=== PATIENT | male | born 1930 | race Caucasian/White ===

== ENCOUNTER → 2017-06-27 | Outpatient (CLI) | payer MEDICARE ==
[~2017-06-27] MED LIST: AMOCLA875 PO; ASPI325EC; ASPI81CH PO; CLOP75 PO; HYDCHL25 PO
== END ==
LOC: LAB SHORT 15:49 → PLD 15:49
DX: D48.5 Neoplasm of uncertain behavior of skin (principal)
CPT/HCPCS: 88305

== ENCOUNTER → 2017-10-31 | Outpatient (CLI) | payer MEDICARE ==
[~2017-10-31] MED LIST changes: -ASPI81CH PO; -CLOP75 PO; -HYDCHL25 PO
== END | disposition home or self-care (01) ==
LOC: PLD 09:14 → LAB SHORT 09:14
DX: C44.42 Squamous cell carcinoma of skin of scalp and neck (principal); C44.729 Squamous cell carcinoma of skin of left lower limb, including hip
CPT/HCPCS: 88305

== ENCOUNTER 2017-12-24 08:58 | Emergency (ER) | payer OTHER ==
[~2017-12-24] VITALS: Ht 170.2 cm; Wt 65.3 kg
[2017-12-24] MEDS ORDERED: CLOP75 PO (10:25)
[2017-12-24] MEDS ORDERED: HYDCHL25 PO (10:25)
[2017-12-24] MEDS ORDERED: ASPI81CH PO (10:26)
== END 2017-12-24 12:36 | disposition home or self-care (01) ==
LOC: ER 08:58
DX: S89.91XA Unspecified injury of right lower leg, initial encounter (principal); I10 Essential (primary) hypertension; Z87.891 Personal history of nicotine dependence; Z88.2 Allergy status to sulfonamides; Z79.899 Other long term (current) drug therapy; Z79.82 Long term (current) use of aspirin; W22.8XXA Striking against or struck by other objects, initial encounter
CPT/HCPCS: 29505; 73564; 73700; 99284-25

== ENCOUNTER → 2018-10-02 | Outpatient (CLI) | payer MEDICARE ==
[~2018-10-02] MED LIST changes: +ASPI81CH PO; +CLOP75 PO; +HYDCHL25 PO
== END | disposition home or self-care (01) ==
LOC: PLD 15:48 → LAB SHORT 15:48
DX: D48.5 Neoplasm of uncertain behavior of skin (principal)
CPT/HCPCS: 88305

== ENCOUNTER 2020-08-07 15:27 | Emergency (ER) | payer MEDICARE ==
[~2020-08-07] VITALS: Ht 172.7 cm; Wt 64.9 kg
== END 2020-08-07 19:44 | disposition home or self-care (01) ==
LOC: ER 15:27
DX: K56.41 Fecal impaction (principal); I10 Essential (primary) hypertension; Z88.2 Allergy status to sulfonamides; Z79.02 Long term (current) use of antithrombotics/antiplatelets; Z79.4 Long term (current) use of insulin; Z87.891 Personal history of nicotine dependence
CPT/HCPCS: 99282-25; A9270

== ENCOUNTER → 2020-08-09 | Outpatient (CLI) | payer MEDICARE | END | disposition home or self-care (01) | LOC: LAB SHORT 14:51 → LAB 14:51 | DX: D48.5 Neoplasm of uncertain behavior of skin (principal) | CPT/HCPCS: 88305 ==